=== PATIENT | female | born 1970 | race African-American/Black ===

== ENCOUNTER 2024-08-27 16:49 | Inpatient (IN) | payer SELFPAY ==
[~2024-08-27] VITALS: Ht 157.5 cm; Wt 54.0 kg
[2024-08-27] MEDS: VANCOMYCIN 1G PREMIX 200 ML IV ONE (17:15)
[2024-08-27] MEDS: PIPERACILLIN/TAZO 3.375G/50ML 50 ML IV ONE (17:15)
[2024-08-27] MEDS: SODIUM CHLORIDE 0.9% 1,000 ML IV ONE (17:54)
[2024-08-27] MEDS: SODIUM CHLORIDE 0.9% 1000ML BAG (SEPSIS BOLUS) IV ONE (17:54)
[2024-08-27 18:05] LABS: CHLORIDE 113 mEq/L (98-107); POTASSIUM 5.2 mEq/L (3.5-5.1); SODIUM 140 mEq/L (136-145)
[2024-08-27 18:06] LABS: CALCIUM 7.6 mg/dL (8.7-10.4); CARBON DIOXIDE 15 mEq/L (21-32)
[2024-08-27 18:11] LABS: CREATININE 1.5 mg/dL (0.6-1.0); UREA NITROGEN BLOOD 16 mg/dL (9-23)
[2024-08-27 18:12] LABS: TROPONIN I HIGH SENSITIVITY 8 ng/L (3.0-34)
[2024-08-27 18:15] LABS: GLUCOSE 46 mg/dL (70-105); LACTIC ACID 4.9 mmol/L (0.4-2.0)
[2024-08-27] MEDS: DEXTROSE 50% WATER 50ML SYRINGE IV ONE ×2 (18:17→18:31)
[2024-08-27] MEDS: DEXTROSE 10% WATER 500 ML IV ONE (18:32)
[2024-08-27 19:03] LABS: TROPONIN I HIGH SENSITIVITY 4 ng/L (3.0-34)
[2024-08-27 20:15] LABS: INR 1.3; PROTHROMBIN TIME 14.7 sec (9.6-11.0)
[2024-08-27 20:17] LABS: TROPONIN I HIGH SENSITIVITY 15 ng/L (3.0-34)
[2024-08-27 20:41] LABS: DIFFERENTIAL COMMENT 1; HEMOGLOBIN. 7.8 g/dL (12.0-16.0); MEAN CORPUSCULAR HEMOGLOBIN 27.1 pg (28.0-32.0); MEAN CORPUSCULAR HGB CONC 32.6 g/dL (31.0-37.0); MEAN CORPUSCULAR VOLUME 83.2 fL (81.0-99.0); MEAN PLATELET VOLUME 8.8 fl (7.4-10.4); PLATELET 142 x1000/uL (130-400); RED BLOOD CELL COUNT 2.89 mill/uL (4.2-5.4); RED CELL DISTRIBUTION WIDTH 18.5 % (11.6-14.6)
[2024-08-27] MEDS ORDERED: MAGNESIUM/ALUMINUM HYDROXIDE/SIMETHICONE 30ML UDC PO PRN (21:00)
[2024-08-27] MEDS ORDERED: IPRATROPIUM/ALBUTEROL 0.5-3(2.5)MG/3ML NEB HHN PRN (21:00)
[2024-08-27] MEDS ORDERED: ACETAMINOPHEN 325MG TABLET PO PRN ×2 (21:00)
[2024-08-27] MEDS ORDERED: GUAIFENESIN 200MG/10ML SUGAR FREE UDC PO PRN (21:00)
[2024-08-27] MEDS ORDERED: ONDANSETRON HCL 4MG/2ML INJ IV PRN (21:00)
[2024-08-27] MEDS: SODIUM CHLORIDE 0.9% 1,000 ML IV SCH (21:00)
[2024-08-27] MEDS ORDERED: DIPHENHYDRAMINE 50MG/ML VIAL IV PRN (21:00)
[2024-08-27] MEDS ORDERED: CLONIDINE 0.1MG TABLET PO PRN (21:00)
[2024-08-27] MEDS: IBUPROFEN 600MG TABLET PO NR (21:00)
[2024-08-27] MEDS ORDERED: DOCUSATE SODIUM 100MG CAPSULE PO PRN (21:00)
[2024-08-27 21:50] LABS: ANISOCYTOSIS 1+; PLATELET ESTIMATE NORMAL
[2024-08-27] MEDS: PIPERACILLIN/TAZO 3.375G/50ML 50 ML IV SCH (22:00)
[2024-08-27 22:12] LABS: ALANINE AMINOTRANSFERASE 22 IU/L (10-49); ALBUMIN 2.2 g/dL (3.2-4.8); ASPARTATE AMINOTRANSFERASE 35 IU/L (<34)
[2024-08-27 22:13] LABS: BILIRUBIN DIRECT 0.1 mg/dL (<=3.0); BILIRUBIN TOTAL 0.3 mg/dL (0.1-1.0); PROTEIN TOTAL 5.7 g/dL (6.0-8.3)
[2024-08-27 22:16] LABS: IRON 65 ug/dL (50-170)
[2024-08-27 22:18] LABS: TOTAL IRON BINDING CAPACITY 95 ug/dl (250-425)
[2024-08-27 22:30] LABS: FERRITIN 430 ng/mL (10-291); FOLIC ACID (FOLATE) SERUM > 20.00 ng/mL (>5.38)
[2024-08-27 22:31] LABS: VITAMIN B12 SERUM 1690 pg/mL (211-911)
[2024-08-28] VITALS (8 sets, daily range): BP systolic 100–137; BP diastolic 53–86; PULSE 88–117; RESP 15–23; TEMP 36.6696–36.83628; O2SAT 95–100
[2024-08-28] MEDS: DEXTROSE 50% WATER 50ML SYRINGE IV NR ×2 (04:12→04:13)
[2024-08-28] MEDS: BLOOD SUGAR DIAGNOSTIC STRIP TEST SCH ×2 (12:24→21:36)
[2024-08-28] MEDS: VANCOMYCIN 750MG/250ML IV SCH (12:25)
[2024-08-28] MEDS: FAMOTIDINE 20MG/2ML VIAL IV SCH (12:25)
[2024-08-28] MEDS: DEXTROSE 50% WATER 50ML SYRINGE IV PRN ×2 (12:56→14:52)
[2024-08-28] MEDS: DEXT 5%/0.9% NACL 1,000 ML IV SCH (17:57)
[2024-08-29] VITALS (8 sets, daily range): BP systolic 94–129; BP diastolic 51–86; PULSE 76–104; RESP 12–17; TEMP 36.114–36.89184; O2SAT 94–100
[2024-08-29] MEDS: VANCOMYCIN 750MG/150ML (BAXTER) IV SCH (08:14)
[2024-08-30] VITALS: BP 104/87; PULSE 88; RESP 16; TEMP 36.78072; O2SAT 98
[2024-08-30 04:00] VITALS: TEMP 36.83628
[2024-08-30 08:00] VITALS: BP 99/70; PULSE 89; RESP 15; TEMP 36.22512; O2SAT 97
[2024-08-30 12:00] VITALS: BP 108/67; PULSE 68; RESP 16; O2SAT 100
[2024-08-30] MEDS: NITROGLYCERIN 0.4MG TABLET SL SL PRN (15:42)
[2024-08-30 16:00] VITALS: BP 101/65; PULSE 69; RESP 17; TEMP 36.72516; O2SAT 100
[2024-08-30 16:29] VITALS: BP 101/65; PULSE 69; TEMP 98.1; O2SAT 100
== END 2024-08-30 17:55 | DRG 720 ==
LOC: ER 16:49 → MICUSO 20:19 → EDBEDREQ 20:50 → EDBEDREQTM 20:50 → EDBEDREQSVC 20:50 → 5EST 08-28 09:12
PROVIDERS: ADMIT Preventive Medicine Clinical Informatics; ATTEND Preventive Medicine Clinical Informatics
DX: A41.9 Sepsis, unspecified organism (principal); G92.8 Other toxic encephalopathy; E43 Unspecified severe protein-calorie malnutrition; N17.9 Acute kidney failure, unspecified; J18.9 Pneumonia, unspecified organism; R64 Cachexia; E83.51 Hypocalcemia; E88.09 Other disorders of plasma-protein metabolism, not elsewhere classified; E78.5 Hyperlipidemia, unspecified; D50.8 Other iron deficiency anemias; E87.6 Hypokalemia; E16.2 Hypoglycemia, unspecified; K59.00 Constipation, unspecified; I12.9 Hypertensive chronic kidney disease with stage 1 through stage 4 chronic kidney disease, or unspecified chronic kidney disease; N18.9 Chronic kidney disease, unspecified; D64.9 Anemia, unspecified; Z59.00 Homelessness unspecified; K52.9 Noninfective gastroenteritis and colitis, unspecified; Z68.21 Body mass index [BMI] 21.0-21.9, adult
CPT/HCPCS: 36415; 71045; 74176; 80048; 80076; 82270; 82607; 82728; 82746; 82962; 83540; 83550; 83605; 84145; 84484; 85025; 86850; 86900; 99291; A6261; J2543; J3370; J3490; J7030; J7042